=== PATIENT | male | born 1985 | race Caucasian/White ===

== ENCOUNTER 2019-11-21 22:10 | Emergency (ER) | payer MEDICAID ==
[~2019-11-21] VITALS: Ht 188 cm; Wt 109.1 kg
[2019-11-22] MEDS ORDERED: IBUPROFEN 600MG TAB PO ONE (00:30)
[2019-11-22] MEDS ORDERED: NORCO, ANEXSIA 5/325MG TABLET (HYDROcodone/ACETAMINOPHEN) PO ONE (01:15)
[2019-11-22] MEDS ORDERED: HYDR-3715 PO (01:39)
[2019-11-22 01:44] VITALS: BP 120/81
--- NOTE | 2019-11-22 08:16 | REP ---
Right hand series: Four views. History: Pain and swelling after punching a wall. Findings: Four views of the right hand demonstrate an impacted slightly comminuted fracture of the proximal end of the fifth metacarpal with associated soft-tissue swelling. There is apex dorsal angulation as well. No other fractures seen. Impression: Impacted angulated fracture of the proximal end of the fifth metacarpal. Electronically Signed by Porfirio Gandhi MD 11/22/2019 08:08 A
== END 2019-11-22 01:53 | disposition home or self-care (01) ==
LOC: M ED 22:10
DX: S62.396A Other fracture of fifth metacarpal bone, right hand, initial encounter for closed fracture (principal); W22.8XXA Striking against or struck by other objects, initial encounter; Y92.89 Other specified places as the place of occurrence of the external cause; Y99.8 Other external cause status; Y93.89 Activity, other specified; F17.200 Nicotine dependence, unspecified, uncomplicated